=== PATIENT | female | born 1965 | race Caucasian/White ===

== ENCOUNTER 2018-04-13 23:31 | Emergency (ER) | payer SELFPAY ==
[~2018-04-13] VITALS: Ht 162.6 cm; Wt 59.1 kg
[~2018-04-13 23:31] MED LIST: BACTRIM DS1 TAB PO; CLARITIN10 M1 PO; CLINDAMYCIN150 MG PO; CLINDAMYCIN300 MG PO; NO HOME MEDS; OMEPRAZOLE40 MG PO; PROCTOSOL HC2.5 % RE; ROBITUSSIN AC10 ML PO
[2018-04-14 00:03] LABS: GFR > 60 ML/MIN (>=60 (CALC)); GFR FOR AFR.AMER. > 60 ML/MIN (>=60 (CALC))
[2018-04-14 00:07] LABS: IMMATURE GRANULOCYTES 0.3 % (0.0-5.0); MEAN CORPUSCULAR HGB 31.1 pG CALC (26.0-32.0); MEAN CORPUSCULAR HGB CONC 34.2 g/L CALC (32.0-36.0); NEUT# 5.02 thou/uL (2.00-7.15); RED BLOOD COUNT 4.99 mill/uL (4.20-5.60); RED CELL DISTRI WIDTH 12.6 % (11.5-15.5)
[2018-04-14 00:08] LABS: HEMATOCRIT 45.3 % (37.0-47.0); HEMOGLOBIN 15.5 g/dl (12.0-16.0); MEAN CELL VOLUME 90.8 fL CALC (80.0-100.0)
[2018-04-14 00:19] LABS: ALKALINE PHOSPHATASE 99 u/l (38-126); ANION GAP 15 (6-22 (CALC)); BILIRUBIN, TOTAL 0.3 mg/dL (0.0-1.4); BUN 7 mg/dL (7-17); BUN/CREATININE RATIO 8 (12-20 (CALC)); CARBON DIOXIDE 26 mmol/l (22-30); CHLORIDE 103 mmol/l (95-108); CREATININE 0.8 mg/dL (0.5-1.0); GFR > 60 ML/MIN (>=60 (CALC)); GFR FOR AFR.AMER. > 60 ML/MIN (>=60 (CALC)); POTASSIUM 3.5 mmol/l (3.5-5.1); SODIUM 141 mmol/l (137-146)
[2018-04-14 00:22] LABS: ALBUMIN 4.4 g/dL (3.2-5.0); SGOT/AST 29 u/l (14-36); TOTAL PROTEIN 8.4 g/dL (6.3-8.2)
[2018-04-14 00:26] LABS: INTERNATIONAL NORMALIZED RATIO 0.9 RATIO (0.7-1.3); PROTHROMBIN TIME 9.7 SECONDS (9.0-12.5)
[2018-04-14] MEDS ORDERED: VENTOLIN HFA IN (00:26)
[2018-04-14 00:31] LABS: MYOGLOBIN 25 ng/mL (0 - 62)
[2018-04-14 01:19] LABS: URINE BILIRUBIN - DIPSTICK NEGATIVE (NEGATIVE); URINE BLOOD DIPSTICK NEGATIVE (NEGATIVE); URINE COLOR YELLOW; URINE GLUCOSE - DIPSTICK NEGATIVE (NEGATIVE); URINE KETONE NEGATIVE (NEGATIVE); URINE LEUK ESTERASE NEGATIVE (NEGATIVE); URINE NITRITE - DIPSTICK NEGATIVE (Negative); URINE PROTEIN - DIPSTICK NEGATIVE (NEG-TRACE); URINE SPECIFIC GRAVITY <=1.005; URINE UROBILINOGEN - DIPSTICK 0.2 E.U./dL (0.2)
[2018-04-14 01:22] LABS: URINE CLARITY CLEAR
[2018-04-14 01:26] LABS: BARBITURATES NEGATIVE (NEGATIVE); COCAINE NEGATIVE (NEGATIVE); METHADONE NEGATIVE (NEGATIVE); OXCYCODONE NEGATIVE (NEGATIVE); TETRAHYDROCANNABIONOL NEGATIVE (NEGATIVE); TRICYLIC ANTIDEPRESSANTS NEGATIVE (NEGATIVE)
[2018-04-14 01:41] VITALS: BP 127/81
== END 2018-04-14 01:30 | disposition short-term general hospital (02) | DRG 69 ==
LOC: ED 23:31
PROVIDERS: Emergency Medicine
DX: G45.9 Transient cerebral ischemic attack, unspecified (principal); J45.909 Unspecified asthma, uncomplicated; F17.210 Nicotine dependence, cigarettes, uncomplicated